=== PATIENT | female | born 1955 | race Caucasian/White ===

== ENCOUNTER 2021-02-13 10:21 | Observation (INO) | payer OTHER, SELFPAY ==
[2021-02-13] VITALS (13 sets, daily range): BP systolic 104–145; BP diastolic 58–115; PULSE 65–86; RESP 14–22; TEMP 36–36.4; O2SAT 96–100; BMI 32.3
--- NOTE | ~2021-02-13 | CT_ITS ---
EXAMINATION: CT brain wo con DATE: 02/13/2021 11:29 INDICATION: Dizziness. Syncope. TECHNIQUE: Computed tomography (CT) of the head was performed without intravenous contrast. The mA wa s adjusted according to patient size. Iterative reconstruction technique was employed. The dose-lengt h product was 605.33 mGy-cm. COMPARISON: None FINDINGS: There is no intracranial hemorrhage, acute infarction, or abnormal intracranial mass lesion . The ventricles are normal in size. There is mild mucosal thickening in the ethmoid sinuses. The mas toid air cells are normal. IMPRESSION: 1. Normal brain. Reviewed, dictated and finalized at location A. IMPRESSION: 1. Normal brain.
--- NOTE | ~2021-02-13 | US_ITS ---
EXAMINATION: US carotid duplex BI DATE: 02/14/2021 14:27 INDICATION: Syncope TECHNIQUE: Grayscale, color Doppler, and pulsed Doppler images of the cervical carotid arteries were obtained. The degree of vessel stenosis is placed in one of the following categories: normal, <50%, 5 0-69%, >=70% but less than near-occlusion, near-occlusion, or total occlusion. Note that percent sten osis relative to normal distal artery lumen diameter is indirectly measured from velocity measurement s as described by José Miguel, et al. Radiology 2003; 229:340-346. COMPARISON: None. FINDINGS: RIGHT: The right common carotid artery (CCA) peak systolic velocity (PSV) is 94 cm/s. The right internal car otid artery (ICA) PSV is 114 cm/s. The right ICA end-diastolic velocity (EDV) is 20 cm/s. The right I CA/CCA PSV ratio is 1.2. Grayscale and color Doppler images yield an estimate of <50% diameter reduct ion from plaque in the ICA. The external carotid artery (ECA) PSV is 87 cm/s. There is antegrade flow in the right vertebral artery. LEFT: The left CCA PSV is 132 cm/s. The left ICA PSV is 126 cm/s. The left ICA EDV is 31 cm/s. The left ICA /CCA PSV ratio is 1.0. Grayscale and color Doppler images including secondary Doppler criteria yield an estimate of <50% diameter reduction from plaque in the ICA. The ECA PSV is 114 cm/s. There is ante grade flow in the left vertebral artery. IMPRESSION: 1. <50% stenosis in the right internal carotid artery. 2. <50% stenosis in the left internal carotid artery. Reviewed, dictated and finalized at location A.
--- NOTE | 2021-02-13 10:35 | ECG_ITS ---
Measurements Intervals [place] Rate: 77 P: 53 NE: 135 QRS: 75 QRSD: 81 T: 34 QT: 384 QTc: 437 Interpretive Statements SINUS RHYTHM BASELINE ARTIFACT- I, II, III, AVR, AVL, V2 NORMAL ECG Electronically Signed On 02-13-2021 14:28:34 CDT by Jeovany Arreola D.O.
[2021-02-13 10:53] LABS: Basophils Percent Auto 0.2 % (0.2-1.2); Eosinophils Percent Auto 0.2 % (0-4.4); Hematocrit 43.2 % (37.0-47.0); Hemoglobin 14.8 g/dL (12.0-15.0); Immature Granulocyte Absolute 0.02 K/mm3 (0.00-0.031); Immature Granulocyte Percent A 0.2 % (0-0.5); Lymphocytes Absolute Auto 2.19 K/mm3 (0.9-3.2); Lymphocytes Percent Auto 26.5 % (18.3-44.2); Mean Corpuscular HGB Conc 34.3 g/dl (32-36); Mean Corpuscular Hemoglobin 29.9 pg (26-34); Mean Corpuscular Volume 87.3 fl (80-100); Monocytes Absolute Auto 0.4 K/mm3 (0.1-0.6); Monocytes Percent Auto 4.5 % (2.6-8.5); Neutrophils Absolute Auto 5.6 K/mm3 (1.3-6.7); Neutrophils Percent Auto 68.4 % (45.5-73.1); Platelet Count Result 224 k/mm3 (150-375); Red Blood Count 4.95 M/mm3 (4.2-5.4); Red Cell Distribution Width 13.2 % (11.5-14.5); White Blood Count 8.3 K/mm3 (4.5-10.0)
--- NOTE | 2021-02-13 11:02 | ED.DIZZY ---
HPI - Dizziness General Chief Complaint: Syncope Stated Complaint: passed out Time Seen by Provider: 02/13/21 10:40 Source: patient, family and RN notes reviewed Mode of arrival: ambulatory Limitations: no limitations History of Present Illness HPI Narrative: Patient is 66 years old white female came to the emergency room with her complaining of dizziness started 3 days ago. Patient was seen by her family physician and was diagnosed of vertigo. Patient reported having similar symptoms 1 month ago lasted for about 2 hours then resolved, was prescribed lisinopril for possible hypertension while having vertigo to be taken as needed. Patient reported having syncope twice yesterday the first 1 while sitting at the side of the bed found herself on the floor, and was unresponsive for few seconds the second 1 was patient came from the bathroom to the recliner and was unresponsive while sitting on the recliner and patient does not recall what happened at that time. Last but reported that she was unresponsive for few seconds. She reported that the dizziness get worse with any movement like walking turning, or laying down. The dizziness get better if she stopped moving. The dizziness associated with nausea and vomiting and panic attack. Patient denies any fever, chills, palpitation, headache, respiratory symptoms or chest pain Related Data Allergies Allergy/AdvReac Type Severity Reaction Status Date / Time doxycycline Allergy Unknown Nausea Verified 02/13/21 10:27 Penicillins Allergy Unknown Unknown Verified 02/13/21 10:27 Sulfa (Sulfonamide Allergy Unknown Unknown Verified 02/13/21 10:27 Antibiotics) Review of Systems Review of Systems: Narrative: CONSTITUTIONAL: Denies fever, chills, or sweats. EYES: Denies visual changes, redness, or discharge. ENT: Denies rhinorrhea, congestion, sore throat, or otalgia. CARDIOVASCULAR: Denies chest pain, palpitations, or edema. RESPIRATORY: Denies cough or dyspnea. GASTROINTESTINAL: Denies abdominal pain, nausea, vomiting, or diarrhea. GENITOURINARY: Denies dysuria or hematuria. SKIN: Denies rash or itching. MUSCULOSKELETAL: Denies back pain, joint pain, or myalgia. NEUROLOGIC: Denies headache, numbness, or weakness. PSYCHIATRIC: Denies anxiety or depression. [facility] Surgical History Surgical History History of cholecystectomy (~1994) Hx of tonsillectomy Family History Family History Mother Family history of chronic obstructive pulmonary disease Social History Social History Alcohol intake: current Gender identity (if verbalized by the patient): Female Exam Narrative: Exam Narrative: General appearance: Well-developed, well-nourished, at the bedside Skin: Normal color Head: Normocephalic, nontraumatic Eyes: Clear conjunctiva ENT: Oropharynx normal, ears normal, nose normal Neck: Supple, nontender Chest and respiratory: Airway patent, no respiratory distress, no accessory muscle use Heart: Regular rate/rhythm Abdomen: Soft, nontender, no organomegaly, quiet bowel sounds Vascular: Normal peripheral pulses, normal capillary refill. 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
[2021-02-13 11:03] LABS: Anion Gap 7 mmol/L (8-16); Blood Urea Nitrogen 24 mg/dL (7-17); Calcium 9.4 mg/dL (8.4-10.2); Carbon Dioxide 29 mmol/L (22-30); Chloride 100 mmol/L (98-107); Estimated CRCL calculation 58 ml/min; Estimated Glomerular Filt Rate 56; Glucose 143 mg/dL (65-105); Sodium 136 mmol/L (137-145)
--- NOTE | 2021-02-13 11:07 | PC.NURSE ---
Was started on meclizine by PCP, took two 12.5mg doses, concerned it wasn't helping as she started vomiting. Vertigo worsens when lies flat on back and when turning to the right , states she changes positions slowly
[2021-02-13] MEDS: diazePAM INJ (*CRX) 10 MG/2 ML SYRINGE 5 MG IV PUSH (11:09)
[2021-02-13] MEDS: ONDANSETRON INJ 4 MG/2 ML VIAL IV PUSH (11:09)
[2021-02-13] MEDS: MECLIZINE HCL 25 MG TABLET PO (11:09)
[2021-02-13 11:25] LABS: Alanine Aminotransferase 16 U/L (4-35); Albumin Level 4.7 g/dL (3.5-5.1); Alkaline Phosphatase 72 U/L (38-126); Aspartate Amino Transferase 29 U/L (14-36); Bilirubin,Total 0.5 mg/dL (0.2-1.3)
--- NOTE | 2021-02-13 11:30 | PC.NURSE ---
Pt returned from CT via cart, reports multiple syncopal episodes at home yesterday, per slid into the recliner and states the knee took more of the fall than the head , pt reports R knee pain (no deformities or bruising), denies headache or vision changes
--- NOTE | 2021-02-13 15:15 | PM.IMHP ---
H&P: HPI History of Present Illness Date/Time: 02/13/21 15:15 Chief Complaint: Dizziness and loss of consciousness. Narrative: This is a 66-year-old female recently diagnosed with hypertension who presented to the emergency department earlier today via private vehicle from home for evaluation of dizziness and loss of consciousness. She developed sudden onset vertigo when she awoke and tried to get out of bed on Tuesday morning, worse when lying supine and turning her head to the right. Initially she thought her symptoms were due to high blood pressure as she was recently diagnosed with such and reportedly her blood pressure was 145/94 on her home cuff. She decided to take the lisinopril which she was prescribed however had not yet started as she was trying lifestyle modifications first. She got up cautiously and was able to work the entire day without much issue. Her symptoms returned that night while in bed and seemed to be a lot worse on when she developed nausea, vomiting, and eventually dry heaves. Early this morning she got up to use the restroom and she sat on the side of the bed for moment to catch her bearings as she was quite dizzy due to the vertigo, and the next thing she knew she was waking up on her side on the floor. It is my understanding that she was able to get herself up and go to the bathroom however she then went to get in her recliner and according to the she once again lost consciousness for a minute or so. He was on the phone with 911 when she came to, and she told him that she was doing okay and did need an ambulance. Unfortunately she continues to have pretty significant vertigo and came in for evaluation today. She feels much better after receiving Valium and Antivert in the emergency department and was able to eat lunch and dinner without issue. She denies injury with either of a syncopal episodes. Again she did not really have a prodrome so to speak prior to these episodes however admits that she was anxious, hyperventilating, and crying prior to each of these episodes. She has not had chest pain, palpitations, or shortness of breath. No history of cardiac dysrhythmia or syncope. No new tinnitus or hearing loss. She has not had a headache. No visual changes. She denies focal weakness and paresthesias. Review of Systems Review of Systems: Narrative: Twelve systems were reviewed with pertinent positives and negatives as per HPI. She has occasional mild ringing in her ears but nothing significant has not changed. No sinus congestion, rhinorrhea, otalgia, or odynophagia. She denies fever, chills, and sweats but does note that she was ?clammy? around the time of her syncopal episode early this morning. She denies chest pain, pleuritic pain, shortness of breath. No orthopnea, PND, or lower extremity edema. She denies dysphagia and dysarthria. No diarrhea or constipation. No dysuria. Except as documented, all other systems were reviewed and are negative. [facility] Past Medical History Medical History (Updated 02/13/21 @ 21:41 by Disha Brandon PA-C) Diverticulitis Hypertension Shingles Surgical History Surgical History (Updated 02/13/21 @ 21:39 by Disha Brandon PA-C) History of cholecystectomy (~1994) History of tonsillectomy Family History Family History (Updated 02/13/21 @ 21:39 by Disha Brandon PA-C) Mother Diabetes mellitus Chronic obstructive pulmonary disease Coronary artery disease Father Hypertension Lymphoma Social History Social History (Updated 02/13/21 @ 21:40 by Disha Brandon PA-C) Social History: Surrogate decision maker: Bryant Josh, . Code status: Full code. Smoking status: Never smoker Alcohol intake: never Substance use: never Substance use type: does not use Additional living arrangements comments: The patient lives with her in [place]. Additional occupation/education comments: Works for [employer]
--- NOTE | 2021-02-13 15:19 | ADMGEN ---
This patient, Shaista Moreno, was admitted to IMU Room 232-01. Patient/family oriented to hospital policies and general routines including ID bracelet, bed and alarms, visiting hours, pain management, procedures, bathroom and other care routines, personal items, smoking policy, room service/diet, and visiting hours. Information on how to activate the Rapid Response Team has been discussed. Patient/Family are encouraged to report perceived risks to care and to ask questions if they do not understand what they are told or what they should do.
[2021-02-13 23:08] LABS: Magnesium 2.1 mg/dL (1.6-2.3)
[2021-02-14] VITALS (13 sets, daily range): BP systolic 110–142; BP diastolic 49–85; PULSE 66–94; RESP 14–20; TEMP 36.1–36.6; O2SAT 97–100
[2021-02-14 05:30] LABS: Anion Gap 4 mmol/L (8-16); Blood Urea Nitrogen 21 mg/dL (7-17); Calcium 9.2 mg/dL (8.4-10.2); Carbon Dioxide 33 mmol/L (22-30); Chloride 101 mmol/L (98-107); Estimated CRCL calculation 73 ml/min; Estimated Glomerular Filt Rate > 60; Glucose 103 mg/dL (65-105); Potassium 4.3 mmol/L (3.4-5.0); Sodium 138 mmol/L (137-145)
[2021-02-14] MEDS: lisinopriL 10 MG TABLET PO (08:10)
[2021-02-14] MEDS: hydroCHLOROthiazide 12.5 MG CAPSULE PO (08:10)
--- NOTE | 2021-02-14 16:11 | PM.DS ---
DS: Admitting Diagnosis Admitting Diagnosis Admitting Diagnosis: Chief Complaint: Dizziness and loss of consciousness. DS: Discharge Diagnosis Discharge Diagnosis (1) Syncope: Qualifiers: Syncope type: unspecified Qualified Code(s): R55 - Syncope and collapse Code(s): R55 - Syncope and collapse Status: Acute (2) Benign paroxysmal positional vertigo: Code(s): H81.10 - Benign paroxysmal vertigo, unspecified ear Status: Acute (3) Hypertension: Code(s): I10 - Essential (primary) hypertension Status: Acute DS: Summary Hospital Course Reason for hospitalization: Chief Complaint: Dizziness and loss of consciousness. Narrative: This is a 66-year-old female recently diagnosed with hypertension who presented to the emergency department earlier today via private vehicle from home for evaluation of dizziness and loss of consciousness. She developed sudden onset vertigo when she awoke and tried to get out of bed on Tuesday morning, worse when lying supine and turning her head to the right. Initially she thought her symptoms were due to high blood pressure as she was recently diagnosed with such and reportedly her blood pressure was 145/94 on her home cuff. She decided to take the lisinopril which she was prescribed however had not yet started as she was trying lifestyle modifications first. She got up cautiously and was able to work the entire day without much issue. Her symptoms returned that night while in bed and seemed to be a lot worse on when she developed nausea, vomiting, and eventually dry heaves. Early this morning she got up to use the restroom and she sat on the side of the bed for moment to catch her bearings as she was quite dizzy due to the vertigo, and the next thing she knew she was waking up on her side on the floor. It is my understanding that she was able to get herself up and go to the bathroom however she then went to get in her recliner and according to the she once again lost consciousness for a minute or so. He was on the phone with 911 when she came to, and she told him that she was doing okay and did need an ambulance. Unfortunately she continues to have pretty significant vertigo and came in for evaluation today. She feels much better after receiving Valium and Antivert in the emergency department and was able to eat lunch and dinner without issue. She denies injury with either of a syncopal episodes. Again she did not really have a prodrome so to speak prior to these episodes however admits that she was anxious, hyperventilating, and crying prior to each of these episodes. She has not had chest pain, palpitations, or shortness of breath. No history of cardiac dysrhythmia or syncope. No new tinnitus or hearing loss. She has not had a headache. No visual changes. She denies focal weakness and paresthesias. Hospital Course: Chief Complaint: Dizziness and loss of consciousness. Narrative: This is a 66-year-old female recently diagnosed with hypertension who presented to the emergency department earlier today via private vehicle from home for evaluation of dizziness and loss of consciousness. She developed sudden onset vertigo when she awoke and tried to get out of bed on Tuesday morning, worse when lying supine and turning her head to the right. Initially she thought her symptoms were due to high blood pressure as she was recently diagnosed with such and reportedly her blood pressure was 145/94 on her home cuff. She decided to take the lisinopril which she was prescribed however had not yet started as she was trying lifestyle modifications first. She got up cautiously and was able to work the entire day without much issue. Her symptoms returned that night while in bed and seemed to be a lot worse on when she developed nausea, vomiting, and eventually dry heaves. Early this morning she got up to use the restroom and she sat on the side of the bed for moment to ca
--- NOTE | 2021-02-14 21:50 | ECHO_ITS ---
Patient Info Name: Shaista Moreno Age: 66 years : 1955 Gender: Female Ht: 67 in Wt: 206 lbs BSA: 2.13 m2 HR: 74 bpm BP: 110 / 57 mmHg Heart Rhythm: Sinus Rhythm Technical Quality: Good Exam Date: 02/14/2021 9:08 AM Exam Location: [facility] Exam Room: 232 Patient Status: Inpatient Admit Date: 02/13/2021 Staff Ordering Physician: Disha Brandon PA-C Manager Maintenance: Mulu Porter RDCS Attending Provider: Eamon Olmedo MD Referring Physician: Aleksandr LANDEROS; Exam Type: CA echo doppler color flow Study Info Indications - syncope htn Complete two-dimensional, color flow and Doppler transthoracic echocardiogram is performed. Summary 1. Complete two-dimensional, color flow and Doppler transthoracic echocardiogram is performed. 2. Trivial tricuspid and pulnomic valve regurgitation. 3. Otherwise normal exam. Left Ventricle Left ventricular chamber dimension is normal. Left ventricular systolic function is normal, estimated at 65-70%. The left ventricular diastolic function is normal. Right Ventricle Right ventricular chamber dimension is normal. Left Atria Left atrial chamber dimension is normal. Right Atria Right atrial chamber dimension is normal. Aortic Valve The aortic valve is normal. Pulmonic Valve The pulmonic valve is normal. There is trace pulmonic regurgitation. Mitral Valve The mitral valve has normal leaflets. Tricuspid Valve The tricuspid valve leaflets are normal. There is trace tricuspid valve regurgitation. Pericardium/Pleural The pericardium appears normal. Aorta The aortic root size at the sinus of Valsalva is normal. Left Ventricular Outflow Tract Name Value Normal LVOT 2D LVOT Diameter 2.0 cm LVOT Doppler LVOT Peak Gradient 4 mmHg LVOT Mean Gradient 2 mmHg LVOT VTI 22 cm LVOT VTI/AV VTI Ratio 0.8 LVOT Stroke Volume 68 ml LVOT CO 13.4 l/min LVOT CI 6.3 l/min/m2 Pulmonic Valve Name Value Normal RVOT Doppler RVOT Peak Gradient 2 mmHg PV Doppler PV Peak Gradient 6 mmHg Mitral Valve Name Value Normal MV Doppler MV Decel Peñuelas 363 cm/s2 MV PHT 58 ms MV Area (PHT) 3.8 cm2 4.0-5.0 M
== END 2021-02-14 17:13 | disposition home or self-care (01) ==
LOC: ANHED 13:45 → ANHIMU 02-14 16:11
PROVIDERS: Physician Assistant; Admitting Provider Internal Medicine; Emergency Provider Emergency Medicine; PCP Family Medicine; Visit Provider Family Medicine
DX: R55 Syncope and collapse (principal); H81.10 Benign paroxysmal vertigo, unspecified ear; I10 Essential (primary) hypertension
CPT/HCPCS: 36415; 70450; 80048; 80076; 83735; 85025; 93005; 93306; 93880; 96374; 96375; 97161; 97165; 99285; A9270; G0378; J2405; J3360

== ENCOUNTER 2021-03-19 15:30 | Outpatient (RCR) | payer OTHER, SELFPAY ==
--- NOTE | 2021-03-03 15:14 | PTOPEVAL ---
PHYSICAL THERAPY EVALUATION AND PLAN OF CARE 03-03-21 Thank you for referring Shaista Moreno to [facility].? She is scheduled to be seen for therapy? 0-2 x/week for 4 weeks. Please review, sign, date and return this plan of care QUENTIN. I agree with and certify that the following plan of care is medically necessary. Referring Physician Date Attending Provider: Clementina Solorio PA-C PT Outpatient Evaluation Document 03/03/21 14:00 FRANKO (Rec: 03/03/21 15:13 FRANKO [id number]) Source of Past Medical History Patient Neurological History Hx Migraine Yes: history of--stop drinking diet soda and resolved Cardiovascular History Hx Hypertension Yes: new dx:meds; at home 110/60 Respiratory History Hx Respiratory Disorders No Significant History Gastrointestinal History Hx Gastroesophageal Reflux Disease Yes Genitourinary History Hx Genitourinary Disorders No Significant History Musculoskeletal History Hx Other Musculoskeletal Disorders Yes: neck pain; hip and knee pain Hematological History Hx Hematological Disorders No Significant History Endocrine History Hx Endocrine Disorders No Significant History HEENT History Hx HEENT Disorders No Significant History Integumentary History Hx Skin Disorders No Significant History Reproductive History Hx Reproductive Disorders No Significant History Psychosocial History Hx Psychiatric Disorders No Significant History Other History Hx Other Medical Conditions Yes: have had COVID vaccine Evaluation Information Problem Diagnosis BPPV Onset 02-13-21 Subjective Information hospitalized due to dizziness Query Text:As Reported By Patient/ Family Prior Level of Function Activity Level (Last 3 Months) 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
--- NOTE | 2021-03-10 11:03 | PCPTNOTE ---
pt called and canceled today's appt;
--- NOTE | 2021-03-26 14:06 | PCPTNOTE ---
Patient called & cancelled scheduled appointment this date, stating she is feeling much better, and feels can manage without therapy at this time.
--- NOTE | 2021-04-08 15:06 | PCPTNOTE ---
PHYSICAL THERAPY DISCHARGE 04-08-21 Attending Provider: Clementina Solorio PA-C Patient:Shaista Moreno Date of :1955 Mrs. Jackson has not returned for any further treatments since the PT evaluation on 03/19/2021, for the diagnosis of BPPV. She called and stated she was better and canceled therapy, therefore she will be discharged at this time. Thank you for referring Beth to [facility]. Please review, sign, date and return this discharge summary QUENTIN. I have been updated about the patient's current status and I agree with discharge from the above service at this time. Referring Physician Date
== END 2021-04-10 08:17 | disposition home or self-care (01) ==
LOC: ANHPT 15:30
PROVIDERS: PCP Family Medicine; Visit Provider Physician Assistant
DX: H81.10 Benign paroxysmal vertigo, unspecified ear (principal)
CPT/HCPCS: 97110; 97161

== ENCOUNTER → 2021-09-09 17:52 | Outpatient (CLI) | payer OTHER, SELFPAY ==
--- NOTE | ~2021-09-09 | DEXA_ITS ---
Bone Density Report Name: KALEE CRUZ Age: 66 Sex: Female Ethnicity: White Date of : 1955 Indication: postmenopausal; screening for osteoporosis; Referring Provider: SALINA PERES Study: Bone densitometry was performed. Exam Date: September 09, 2021 Accession number: [id number] Bone Density: Region BMD T-score Z-score Classification AP Spine (L1-L4) 1.305 2.3 4.1 Normal Femoral Neck (Left) 1.052 1.8 3.3 Normal Total Hip (Left) 1.087 1.2 2.4 Normal Femoral Neck (Right) 0.851 0.0 1.5 Normal Total Hip (Right) 1.004 0.5 1.7 Normal Total Hip Mean 1.046 0.9 2.1 Normal World Health Organization criteria for BMD impression classify patients as: Normal (T-score at or above -1.0), Osteopenia (T-score between -1.0 and -2.5), or Osteoporosis (T-score at or below -2.5). 10-year Fracture Risk: FRAX not reported because: All T-scores for Spine Total, Hip Total, Femoral Neck at or above -1.0 Clinical Information Provided by Patient: Patient maximum height was 65.0 Menopause Age: 50 No regular weight bearing exercise Does not regularly consume dairy products Drinks caffeinated beverages Onset of menses at age 14 Number of children 2 Impression: The patient has normal bone mass. Discussion: BONE DENSITY IS ABOVE THE MINIMUM DESIRABLE LEVEL AT ALL SKELETAL SITES TESTED. This patient?s bone mineral density is above the minimum desirable level (T-score -1.0 or better) at all sites measured. The patient should follow a healthful lifestyle (good nutrition with adequate calcium and vitamin D, and appropriate weight-bearing exercise). Follow-Up: Consider repeating this study in 5 years or sooner if there is some new clinical indication. Reported by: ALMA on 09/09/2021 6:45:00 PM. Reviewed, dictated and finalized at location [facility]
== END ==
PROVIDERS: PCP Family Medicine; Visit Provider Family Medicine
DX: M81.0 Age-related osteoporosis without current pathological fracture (principal)
CPT/HCPCS: 77080

== ENCOUNTER → 2021-10-28 15:15 | Outpatient (CLI) | payer OTHER, SELFPAY ==
--- NOTE | ~2021-10-28 | MM_ITS ---
EXAMINATION: MM screening [facility] BI w katherine HISTORY: Screening TECHNIQUE: Craniocaudal and mediolateral oblique 3-D tomosynthesis images were obtained and synthetic 2-D images were generated. CAD analysis was submitted and interpreted. COMPARISON: Comparison to multiple prior studies sequentially, with oldest reviewed study dated 06/2013. BREAST PARENCHYMAL COMPOSITION: Breast composed of scattered areas of fibroglandular density. FINDINGS: There is no evidence of suspicious mass, calcification, or architectural distortion to sugg est malignancy in either breast. There has been no suspicious interval change. IMPRESSION: 1. No mammographic evidence of malignancy. 2. Recommend routine screening mammography in one year. BI-RADS Category 1: Negative Reviewed, dictated and finalized at location A. DER DRIVER
== END ==
PROVIDERS: PCP Family Medicine; Visit Provider Family Medicine
DX: Z12.31 Encounter for screening mammogram for malignant neoplasm of breast (principal)
CPT/HCPCS: 77063; 77067

== ENCOUNTER 2021-12-31 13:26 | Outpatient (CLI) | payer OTHER, SELFPAY | END 2021-12-31 13:27 | disposition home or self-care (01) | LOC: ANHAUDIO 13:28 | PROVIDERS: PCP Family Medicine; Visit Provider Family Medicine | DX: H91.90 Unspecified hearing loss, unspecified ear (principal) | CPT/HCPCS: 92557; 92567 ==

== ENCOUNTER 2022-06-12 15:10 | Emergency (ER) | payer MEDICARE, SELFPAY ==
--- NOTE | ~2022-06-12 | XR_ITS ---
EXAM: XR foot LT min 3V DATE: 06/12/2022 15:34 HISTORY: trauma today rolled foot/lateral metatarsal area pain . COMPARISON: 02/15/2019. FINDINGS: Normal mineralization. No fracture or dislocation. No lytic or blastic lesion. Scattered d egenerative changes. Plantar enthesopathy. No erosion or periosteal change. Soft tissues within edda l limits. IMPRESSION: No acute osseous finding in the left foot. Reviewed, dictated and finalized at location K.
[2022-06-12 15:23] VITALS: BP 127/65; PULSE 75; RESP 18; TEMP 36.5; O2SAT 97
--- NOTE | 2022-06-12 15:34 | ED.GENADULT ---
HPI - General Adult General Chief complaint: Extremity Injury, Lower Stated complaint: Lt Foot Pain due to Fall History of Present Illness HPI narrative: Patient is a 67-year-old female who presents to the the medical center via POV accompanied by her spouse for an evaluation of a left foot injury that occurred today. She reports pain and swelling. She accidentally fell while mis-stepping on a sidewalk. She reports her pain is constant. Unable to describe quality of pain. Rates pain 7 out of 10 on a pain scale. Pain is better at rest and worse with weightbearing. Related Data Allergies Allergy/AdvReac Type Severity Reaction Status Date / Time doxycycline Allergy Mild Nausea Verified 06/12/22 15:28 Penicillins Allergy Mild Hives Verified 06/12/22 15:28 Sulfa (Sulfonamide Allergy Mild Hives Verified 06/12/22 15:28 Antibiotics) Review of Systems Review of Systems: Pertinent negatives: fever, chills, sweats, change in appetite, poor p.o. intake, malaise, calf tenderness, skin color changes, rash, warmth, numbness, tingling, loss of sensation, deformity, decreased range of motion, weakness, difficulty with ambulation/coordination, nausea, vomiting, lymphadenopathy, shortness of breath, chest pain, heart palpitations, and heart murmur. [facility] Past Medical History Medical History Diverticulitis Hypertension Shingles Surgical History Surgical History History of cholecystectomy (~1994) History of tonsillectomy Family History Family History Mother Diabetes mellitus Chronic obstructive pulmonary disease Coronary artery disease Father Hypertension Lymphoma Social History Social History Social History: Surrogate decision maker: Bryant Moreno, . Code status: Full code. Smoking status: Never smoker Alcohol intake: never Substance use: never Substance use type: does not use Additional living arrangements comments: The patient lives with her in [place]. Additional occupation/education comments: Works for [employer]. Gender identity (if verbalized by the patient): Female Spiritual care concerns: No Comments I have reviewed and agree with the patient's past medical, surgical, social, and family hx as documented by the RN. There is no relevant family history pertinent to the presenting complaint. Exam Narrative: GENERAL: Well-appearing, well-nourished, and in no acute distress. HEAD: Normocephalic, atraumatic. NECK: Supple. No Lymphadenopathy or nuchal rigidity appreciated. CHEST: Bilateral lung jain are clear to auscultation. No respiratory distress. No evidence of cough or pleuritic cp upon examination. HEART: Regular rate and rhythm. No murmur, gallop, or rub heard. EXTREMITIES: Moderate generalized pain elicited to lateral aspect of the left foot with all active/passive ROM. No evidence of point tenderness. No evidence of injury, decreased ROM, swelling, cyanosis, hematoma, laceration, abrasion, deformity, rash, or puncture. No evidence of dislocation, ligament laxity, effusion, or pain at rest. Pulses palpable at 2+, strength 5/5, and cap refill < 3 seconds in affected extremity. DTRs normal. Unable to assess gait. Patient in wheelchair. SKIN: Warm, dry, no rash. NEURO: No focal deficits. Alert and oriented x3. Course Course Level of Care: Express Care Visit Vital Signs Vital signs: Vital Signs Temperature 97.7 F 06/12/22 15:23 Pulse Rate 75 06/12/22 15:23 Respiratory Rate 18 06/12/22 15:23 Blood Pressure 127/65 06/12/22 15:23 Pulse Oximetry 97 06/12/22 15:23 Oxygen Delivery Room Air 06/12/22 15:23 Temperature 97.7 F 06/12/22 15:23 Pulse Rate 75 06/12/22 15:23 Respiratory Rate 18 06/12/22
== END 2022-06-12 16:00 | disposition home or self-care (01) ==
PROVIDERS: Emergency Provider Nurse Practitioner Family; PCP Family Medicine
DX: S93.602A Unspecified sprain of left foot, initial encounter (principal); W01.0XXA Fall on same level from slipping, tripping and stumbling without subsequent striking against object, initial encounter; I10 Essential (primary) hypertension
CPT/HCPCS: 73630; 99213; G0463

== ENCOUNTER 2022-11-15 12:28 | Outpatient (CLI) | payer MEDICARE, SELFPAY ==
--- NOTE | 2022-11-15 12:41 | ECHO_ITS ---
Patient Info Name: Shaista Moreno Age: 67 years : 1955 Gender: Female Ht: 65 in Wt: 200 lbs BSA: 2.07 m2 HR: 73 bpm BP: 172 / 93 mmHg Heart Rhythm: Sinus Rhythm Technical Quality: Good Exam Date: 11/15/2022 12:59 PM Exam Location: [facility] Patient Status: Outpatient Admit Date: 11/15/2022 Staff Ordering Physician: Maulik Saeed MD Manager Fitness: Kalani Mckay RDCS Attending Provider: Maulik Saeed MD Referring Physician: Darlin LINO; Exam Type: CA echo doppler color flow Study Info Indications R01.1 - Cardiac murmur, unspecified Complete two-dimensional, color flow and Doppler transthoracic echocardiogram is performed. Summary 1. Complete two-dimensional, color flow and Doppler transthoracic echocardiogram is performed. 2. Small amounts of tricuspid and pulmonic valve regurgitation. 3. Otherwise unremarkable echo cardio. Left Ventricle Left ventricular chamber dimension is normal. Left ventricular systolic function is normal, estimated at 60-65%. The left ventricular diastolic function is normal. Right Ventricle Right ventricular chamber dimension is normal. Left Atria Left atrial chamber dimension is normal. Right Atria Right atrial chamber dimension is normal. Aortic Valve The aortic valve is normal. Pulmonic Valve The pulmonic valve is normal. There is mild pulmonic regurgitation. Mitral Valve The mitral valve has normal leaflets. Tricuspid Valve The tricuspid valve leaflets are normal. There is mild tricuspid valve regurgitation. Pericardium/Pleural The pericardium appears normal. Aorta The aortic root size at the sinus of Valsalva is normal. Left Ventricular Outflow Tract Name Value Normal LVOT 2D LVOT Diameter 2.0 cm LVOT Doppler LVOT Peak Gradient 5 mmHg LVOT Mean Gradient 3 mmHg LVOT VTI 26 cm LVOT VTI/AV VTI Ratio 0.9 LVOT Stroke Volume 81 ml LVOT CO 5.3 l/min LVOT CI 2.6 l/min/m2 Pulmonic Valve Name Value Normal RVOT Doppler RVOT Peak Gradient 3 mmHg PV Doppler PV Peak Gradient 7 mmHg Mitral Valve Name Value Normal MV Doppler MV Decel [place] 329 cm/s2 MV PHT 69 ms MV Area (PHT) 3.2 cm2
== END 2022-11-15 12:29 | disposition home or self-care (01) ==
PROVIDERS: PCP Family Medicine; Visit Provider Family Medicine
DX: R01.1 Cardiac murmur, unspecified (principal)
CPT/HCPCS: 93306

== ENCOUNTER 2022-12-24 01:54 | Day surgery (SDC) | payer MEDICARE, SELFPAY ==
[2022-12-10 10:41] VITALS: BMI 37.4
[2022-12-24 09:03] VITALS: BP 149/84; PULSE 75; RESP 17; TEMP 36.3; O2SAT 98
--- NOTE | 2022-12-24 09:11 | WPDANESEPPF ---
Anes - Initial Pre Proc Eval Procedure: Operation Date: 12/24/22 10:30 Proposed Procedures p Esophagogastroduodenoscopy & Screening Colonoscopy - Demetrius Vivar MD Date/Time: 12/24/22 09:11 Surgeon: Deemtrius Vivar MD Pre Op Diagnosis: neoplasm screening, gastritis Patient Data Age: 67 Gender: F Height: 1.65 m Weight: 102 kg Allergies Allergy/AdvReac Type Severity Reaction Status Date / Time Sulfa (Sulfonamide Allergy Severe Nausea and Verified 12/24/22 09:16 Antibiotics) Vomiting doxycycline Allergy Mild Nausea Verified 12/24/22 09:16 Penicillins Allergy Mild Hives Verified 12/24/22 09:16 Home Medications Medication Instructions Recorded Confirmed Type bupropion HCl 300 mg 24 hr tablet, 300 mg PO QAM #90 tabs 10/12/22 12/10/22 Rx extended release (Wellbutrin XL) esomeprazole magnesium 40 mg 40 mg PO DAILY #90 caps 11/01/22 12/10/22 Rx capsule,delayed release (Nexium) dicyclomine 10 mg capsule 10 mg PO QID PRN stomach cramps 11/17/22 12/10/22 Rx #60 caps alprazolam 0.25 mg tablet 0.25 mg PO TID PRN Anxiety 11/29/22 12/10/22 History sodium,potassium,mag sulfates 17.5 See Rx Instructions PO .COMPLEX 12/02/22 Rx gram-3.13 gram-1.6 gram oral soln #354 mL (Suprep Bowel Prep Kit) aluminum hydrox-magnesium carb 254 10 ml PO QID PRN Gastric Reflux 12/10/22 12/10/22 History mg-237.5 mg/5 mL oral suspension (Gaviscon Extra Strength) hydrochlorothiazide 12.5 mg capsule 12.5 mg PO DAILY 12/10/22 12/10/22 History sucralfate 1 gram tablet 1 g PO ACHS PRN Gastric Reflux 12/10/22 12/10/22 History ondansetron HCl 4 mg tablet 4 mg PO Q6H PRN nausea and 12/13/22 Rx vomiting #20 tabs Patient hx anesthesia problems: none Family hx anesthesia problems: none Results Review: All pre-operative results and documents have been reviewed as part of the pre-operative evaluation. [facility] Past Medical History Medical History Diverticulitis Hypertension Shingles Surgical History Surgical History History of cholecystectomy (~1994) History of tonsillectomy Family History Family History Mother Diabetes mellitus Chronic obstructive pulmonary disease Coronary artery disease Father Hypertension Lymphoma Social History Social History Social History: Surrogate decision maker: Bryant Moreno, . Code status: Full code. Smoking status: Never smoker Alcohol intake: current Substance use: never Substance use type: does not use Lack of Transportation: No Lack of Food: Never True Current Housing: I Have Housing Concerned About Future Housing: No Difficulty Paying Gas/Electric Bills: No Difficulty Paying for Meds: No Currently Unemployed: No Education: High School Diploma/GED Difficulty w/ Childcare or Family Care: No Living arrangements: with family Additional living arrangements comments: The patient lives with her in [place]. Additional occupation/education comments: Works for [employer]. Gender identity (if verbalized by the patient): Female Spiritual care concerns: No Anes - Eval Final PreProcedure Day of Procedure 12/24/22 09:11 Patient weight: obese Heart: regular rate and rhythm Lungs: clear to auscultation and normal air movement Airway: Mallampati scale class II Neurological: alert and oriented Last oral intake: >/= 8 hours ASA classification: III Emergent: no Anesthetic plan: proceed Anesthesia type and monitoring: general GIVS Results Review: All pre-operative results and documents have been reviewed as part of the pre-operative evaluation. Informed Consent: The patient's anesthetic plan and its attendant risks and benefits were discussed with the patient/family/POA. Questions were solicited and
--- NOTE | 2022-12-24 09:37 | WPDHPUPDATE1 ---
History and Physical Update Update Date/Time: 12/24/22 09:37 History and Physical has been reviewed, including an updated exam of the patient. There are NO changes in the patient's condition. Risks, benefits, and alternatives have been discussed and questions answered. Patient agrees to proceed with procedure.
[2022-12-24] MEDS: LACTATED RINGERS 1,000 ML 150 ML IV CONT (09:41)
--- NOTE | 2022-12-24 10:19 | SUR.OPER ---
EGD procedure completed at 1010, Colonoscopy started at 1015
[2022-12-24 10:34] VITALS: BP 98/50; PULSE 83; RESP 19; O2SAT 99
[2022-12-24 10:44] VITALS: BP 98/61; PULSE 82; RESP 19; O2SAT 100
[2022-12-24 10:54] VITALS: BP 99/55; PULSE 76; RESP 17; O2SAT 100
== END 2022-12-24 11:05 | disposition home or self-care (01) ==
PROVIDERS: PCP Family Medicine; Visit Provider Internal Medicine Gastroenterology
PROC: 0DJ08ZZ Inspection of Upper Intestinal Tract, Via Natural or Artificial Opening Endoscopic (ICD-10-PCS; CPT 43235; principal; 2022-12-24 10:30)
DX: Z12.11 Encounter for screening for malignant neoplasm of colon (principal); R10.13 Epigastric pain; K31.7 Polyp of stomach and duodenum; R11.2 Nausea with vomiting, unspecified; K57.30 Diverticulosis of large intestine without perforation or abscess without bleeding; I10 Essential (primary) hypertension; K64.8 Other hemorrhoids; E66.9 Obesity, unspecified
CPT/HCPCS: 43239; G0121; 87081; 88305; J2704; J7120

== ENCOUNTER → 2023-02-02 11:58 | Outpatient (CLI) | payer MEDICARE, SELFPAY ==
--- NOTE | ~2023-02-02 | XR_ITS ---
XR knee LT min 4V DATE: 02/02/2023 12:14 INDICATION: Left knee pain TECHNIQUE: 4 views COMPARISON: None FINDINGS: Tricompartment osteoarthritis, moderately severe at the patellofemoral and medial compartme nts, mild to moderate at the lateral compartment. No fracture or dislocation. Mild suprapatellar knee joint effusion may be present. No periosteal reac tion or bone destruction. No radiopaque intra-articular loose body or chondrocalcinosis. Mild patella r enthesopathy. IMPRESSION: Tricompartment osteoarthritis, most prominent at the patellofemoral and medial compartmen ts Suspected mild knee joint effusion Reviewed, dictated and finalized at location B. IMPRESSION: Tricompartment osteoarthritis, most prominent at the patellofemoral and medial compartments Suspected mild knee joint effusion
== END ==
PROVIDERS: PCP Family Medicine; Visit Provider Nurse Practitioner
DX: M17.12 Unilateral primary osteoarthritis, left knee (principal)
CPT/HCPCS: 73564

== ENCOUNTER → 2023-02-07 13:42 | Outpatient (CLI) | payer MEDICARE, SELFPAY ==
--- NOTE | ~2023-02-07 | MR_ITS ---
EXAMINATION: MR knee LT wo con DATE: 02/07/2023 14:18 INDICATION: Left knee pain and limping post injury TECHNIQUE: Magnetic resonance imaging (MRI) of the left knee was performed without intravenous contra st. Sequences included coronal PD-weighted FSE, coronal PD-weighted FS FSE, sagittal T2-weighted FSE , sagittal PD-weighted FS FSE and axial PD weighted fat saturated FSE. COMPARISON: None. FINDINGS: Medial compartment: Full or near full-thickness radial tear near the posterior root of the medial meniscus with mild medi al extrusion of the meniscal body. Extensive partial thickness cartilage loss involving greater than 50% the cartilage thickness along the anterior to central weightbearing medial femoral condyle and at the anteromedial aspect of the medial tibial plateau, bladder with underlying mild subarticular brittany a-like signal change and likely developing cystlike change. Small marginal osteophytes are present. Lateral compartment: Complex tear of the body and posterior horn of the lateral meniscus beginning in the body as a longit udinal horizontal tear plane extending to the superior articular surface crossing the free edge at th e junction of the body and posterior horn with additional longitudinal horizontal tear plane extendin g to the intra-articular surface at the posterior horn. The posterior horn of the lateral meniscus ex tends to the take intact posterior meniscal femoral ligament of Brown. No evident extension of men iscal tissue towards the region of the posterior root suggesting an additional tear. Small central valladares bchondral osteophyte arising from the central weightbearing lateral femoral condyle at the site of de ep chondral fissuring. Additional shallow chondral surface regularity at the anterior weightbearing l ateral femoral condyle and central aspect of the lateral tibial plateau. Small to moderate size susan nal osteophytes are present. Patellofemoral compartment: Horizontal band of deep chondral ulceration with underlying mild cortical irregularity and couple sma ll foci of subarticular edema-like signal change at the central aspect of the lateral patellar facet. Less severe partial thickness chondral ulceration at the apical ridge and medial facet. Deep chondra l ulceration with additional mild cortical irregularity and minimal edema-like signal change at the i nferior aspect of the lateral trochlea. Ligaments and tendons: Anterior and posterior cruciate ligaments are normal. The fibular collateral ligament complex is norm al. Mild thickening and mild increased signal of the proximal medial collateral ligament without sign ificant surrounding edema to suggest acute injury this likely represents mild scarring related to chr onic sprain. The extensor mechanism is normal. The visualized medial and lateral hamstring tendons as well as the iliotibial band are normal. Fluid: Moderate-sized left knee joint effusion with mild synovitis at the suprapatellar pouch. Multilobulate d ganglion cysts are present at the posterior recesses at the popliteal fossa along the posterior mar gin of the metaphyseal regions of the medial and lateral femoral condyles. No loose osteochondral bod ies identified. Mild prepatellar edema without discrete bursal fluid collection. Osseous/other: Bone alignment is normal. No fracture or pathologic marrow replacing process. IMPRESSION: 1. Radial tear at the posterior horn of the medial meniscus. 2. Complex tear at the body and posterior horn of the lateral meniscus. 3. Tricompartmental osteoarthritis, moderate severity in the medial compartment and mild in the later al and patellofemoral compartments, each with regions of high-grade chondromalacia. 4. Mild scarring along the proximal medial collateral ligament likely sequela of chronic sprain. 5. Moderate-sized left knee joint effusion.
== END ==
PROVIDERS: PCP Family Medicine; Visit Provider Nurse Practitioner
DX: S83.272A Complex tear of lateral meniscus, current injury, left knee, initial encounter (principal); X58.XXXA Exposure to other specified factors, initial encounter; M17.12 Unilateral primary osteoarthritis, left knee; M25.462 Effusion, left knee
CPT/HCPCS: 73721

== ENCOUNTER 2024-05-08 14:17 | Outpatient (CLI) | payer MEDICARE, SELFPAY ==
--- NOTE | ~2024-05-08 | MM_ITS ---
EXAMINATION: MM screening marc BI w katherine HISTORY: Screening TECHNIQUE: Craniocaudal and mediolateral oblique 3-D tomosynthesis images were obtained and synthetic 2-D images were generated. CAD analysis was submitted and interpreted. COMPARISON: Comparison to multiple prior studies sequentially, with oldest reviewed study dated 06/2013. BREAST PARENCHYMAL COMPOSITION: Not dense: There are scattered areas of fibroglandular density. FINDINGS: There is no evidence of suspicious mass, calcification, or architectural distortion to sugg est malignancy in either breast. There has been no suspicious interval change. IMPRESSION: 1. No mammographic evidence of malignancy. 2. Recommend routine screening mammography in one year. BI-RADS Category 1: Negative Reviewed, dictated and finalized at location B.
== END 2024-05-08 14:18 | disposition home or self-care (01) ==
PROVIDERS: PCP Family Medicine; Visit Provider Nurse Practitioner Family
DX: Z12.31 Encounter for screening mammogram for malignant neoplasm of breast (principal)
CPT/HCPCS: 77063; 77067

== ENCOUNTER 2024-08-16 14:26 | Outpatient (CLI) | payer MEDICARE, SELFPAY ==
--- NOTE | ~2024-08-16 | XR_ITS ---
Left Knee Technique: AP, lateral, and sunrise views were obtained. Clinical History: Strain Findings: No fracture or dislocation is seen. There is mild medial compartment narrowing. There is mi ld to moderate tricompartmental degenerative spurring. Soft tissues are unremarkable. No joint effusi on is seen. Impression: Degenerative change, as above. Reviewed, dictated and finalized at location M. Impression: Degenerative change, as above.
--- NOTE | ~2024-08-16 | XR_ITS ---
Right Knee Technique: AP, lateral, and sunrise views were obtained. Clinical History: Pain Findings: No fracture or dislocation is seen. There is mild to moderate tricompartmental degenerative spurring. Soft tissues are unremarkable. No joint effusion is seen. Impression: Mild to moderate tricompartmental degenerative spurring. Reviewed, dictated and finalized at [facility]. Impression: Mild to moderate tricompartmental degenerative spurring.
== END 2024-08-16 14:27 | disposition home or self-care (01) ==
LOC: GOSHIMG 14:27
PROVIDERS: PCP Orthopaedic Surgery; Visit Provider Family Medicine
DX: S86.911A Strain of unspecified muscle(s) and tendon(s) at lower leg level, right leg, initial encounter (principal); S83.249A Other tear of medial meniscus, current injury, unspecified knee, initial encounter; X58.XXXA Exposure to other specified factors, initial encounter; M17.0 Bilateral primary osteoarthritis of knee
CPT/HCPCS: 73562

== ENCOUNTER 2024-09-20 07:17 | Outpatient (CLI) | payer MEDICARE, SELFPAY ==
--- NOTE | 2024-09-20 07:40 | ECG_ITS ---
Test Date: 2024-09-20 07:49:45 Measurements Intervals [place] Rate: 70 P: -2 SC: 114 QRS: 64 QRSD: 82 T: 27 QT: 382 QTc: 413 Interpretive Statements SINUS RHYTHM WITH SHORT SC INTERVAL No previous ECG available for comparison Electronically Signed On 09-20-2024 09:55:32 SOFTWARE CLIENT ARCHITECT by Houston Licona M.D.
== END 2024-09-20 07:18 | disposition home or self-care (01) ==
LOC: ANHCARD 07:19
PROVIDERS: PCP Family Medicine; Visit Provider Orthopaedic Surgery
DX: R01.1 Cardiac murmur, unspecified (principal)
CPT/HCPCS: 93005

== ENCOUNTER 2024-10-29 08:54 | Outpatient (CLI) | payer MEDICARE, SELFPAY ==
[2024-10-29 10:14] LABS: Basophils Percent Auto 0.2 % (0.2-1.2); Eosinophils Absolute Auto 0.1 K/mm3 (0-0.3); Eosinophils Percent Auto 1.9 % (0-4.4); Hematocrit 38.9 % (37.0-47.0); Hemoglobin 12.7 g/dL (12.0-15.0); Immature Granulocyte Absolute 0.01 K/mm3 (0.00-0.031); Immature Granulocyte Percent A 0.2 % (0-0.5); Lymphocytes Absolute Auto 1.96 K/mm3 (0.9-3.2); Lymphocytes Percent Auto 34.3 % (18.3-44.2); Mean Corpuscular HGB Conc 32.6 g/dl (32-36); Mean Corpuscular Hemoglobin 29.7 pg (26-34); Mean Corpuscular Volume 90.9 fl (80-100); Mean Platelet Volume 9.1 fl (7.4-10.4); Monocytes Absolute Auto 0.4 K/mm3 (0.1-0.6); Monocytes Percent Auto 6.3 % (2.6-8.5); Neutrophils Absolute Auto 3.3 K/mm3 (1.3-6.7); Neutrophils Percent Auto 57.1 % (45.5-73.1); Platelet Count Result 196 k/mm3 (150-375); Red Blood Count 4.28 M/mm3 (4.2-5.4); Red Cell Distribution Width 13.5 % (11.5-14.5); White Blood Count 5.7 K/mm3 (4.5-10.0)
[2024-10-29 10:22] LABS: Hemoglobin A1C 5.5 % (<5.7)
[2024-10-29 10:23] LABS: Albumin Level 4.4 g/dL (3.5-5.1)
[2024-10-29 10:27] LABS: Anion Gap 6 mmol/L (4-12); Blood Urea Nitrogen 14 mg/dL (7-17); Calcium 9.2 mg/dL (8.4-10.2); Carbon Dioxide 31 mmol/L (22-30); Chloride 100 mmol/L (98-107); Estimated Glomerular Filt Rate > 60; Glucose 90 mg/dL (65-110); Potassium 4.5 mmol/L (3.4-5.0); Sodium 137 mmol/L (137-145)
[2024-10-29 10:49] LABS: Urine Cotinine NEGATIVE
[2024-10-29 11:23] LABS: MRSA (PCR) NOT DETECTED (NOT DETECTE)
== END 2024-10-29 08:55 | disposition home or self-care (01) ==
LOC: ANHSURGERY 09:00
PROVIDERS: Anesthesiology; PCP Family Medicine; Visit Provider Orthopaedic Surgery
DX: M17.12 Unilateral primary osteoarthritis, left knee (principal); Z79.899 Other long term (current) drug therapy
CPT/HCPCS: 36415; 80048; 80307; 82040; 83036; 85025; 87641

== ENCOUNTER 2024-11-20 00:35 | Day surgery (SDC) | payer MEDICARE, SELFPAY ==
[2024-10-29 09:13] VITALS: BP 136/75; PULSE 79; RESP 16; TEMP 36.6; O2SAT 99; BMI 37.5
--- NOTE | 2024-10-29 09:37 | PC.NURSE ---
Report to the Outpatient Waiting Room, entrance under the green pavilion located off [facility], at time __0800am on date __11/20/24 . Planned Procedure Time: ____1000am____.? Time changes happen often and if your time is changed the preop area will call you the afternoon before. - You and your visitor will be asked to self-screen and do not enter if you have any COVID symptoms. Please call surgeon if you need to reschedule. - A mask is optional within the hospital at this time. Patients may have clear liquids (water, carbonated beverages, clear teas, apple juice) until 3 hours prior to surgery with a maximum of 20 ounces. - No food from midnight until time of surgery and no smoking. This includes no chewing gum, candy or mints.(0700am) Take only the following medications with a SIP of water on the morning of surgery: None- Take Alprazolam and Cyclobenzaprine as needed DO NOT STOP ANY OF YOUR OTHER PRESCRIPTION MEDICATIONS PRIOR TO SURGERY EXCEPT THE FOLLOWING Medications to discontinue per physician Hold all vitamins and supplements Date to take last dose__11/16/24 Please no make-up, nail frisian, hairspray, perfume, deodorant, or body powder the day of surgery.? No jewelry (including any body piercings) or valuables the day of surgery, leave them at home.? Please take a shower or bath the night before, or the morning of, surgery with an antibacterial soap.? Wear comfortable, loose fitting clothing.? Hibicleanse if you want to use it. . - Jewelry must be removed prior to entering the operating room.? Rings and piercings that are not removed may be cut off. - The hospital will not accept responsibility for valuables.? - Please leave all valuables, including medications, at home the day of surgery. If you are going home after surgery, a licensed flatbed driver must drive you home.? - NO public transportation without another adult if you receive anesthesia. - We recommend that an adult stay with you for 24 hours following discharge. - We also recommend that you do not drive, make important decision, drink alcoholic beverages, or take any drugs that were not prescribed by your health care provider for at least 24 hours after your discharge time. Follow any additional instructions given to you from your surgeon. Telephone instructions given to __Patient & and asked if any additional questions and then verbalized understanding. Patient advised to call surgeon office or pre surgery nurse liaison [phone] if any additional questions.
[2024-11-20] VITALS (18 sets, daily range): BP systolic 130–178; BP diastolic 70–91; PULSE 71–88; RESP 14–20; TEMP 35.6–36.4; O2SAT 92–100; BMI 36.7
--- NOTE | ~2024-11-20 | XR_ITS ---
EXAMINATION: [id number] DATE: 11/20/2024 13:01 INDICATION: Postoperative evaluation following left total knee arthroplasty. TECHNIQUE: Anteroposterior and lateral views of the left knee were obtained. COMPARISON: Left knee radiographs dated 08/16/2024 FINDINGS: Left total knee arthroplasty with patellar resurfacing appears well seated and in near anatomic align ment. No fractures identified. Expected postoperative subcutaneous and intra-articular gas. IMPRESSION: 1. Left total knee arthroplasty, negative for postoperative purposes. Reviewed, dictated and finalized at location A. [facility] ED
[2024-11-20] MEDS: LACTATED RINGERS 1,000 ML 30 ML IV CONT ×3 (08:45→13:17)
[2024-11-20] MEDS: ACETAMINOPHEN 500 MG TABLET 1000 MG PO (09:00)
[2024-11-20] MEDS: TRANEXAMIC ACID 1,000MG/ISO100 1,000 MG/100 ML BAG 200 MG IVPB (09:30)
--- NOTE | 2024-11-20 09:37 | P.PNAN_ITS ---
Anes - Initial Pre Proc Eval Procedure: Operation Date: 11/20/24 10:00 Proposed Procedures p Left Total Knee Arthroplasty - Jonathan Gonzalez MD Date/Time: 11/20/24 09:37 Surgeon: Jonathan Gonzalez MD Pre Op Diagnosis: primary oa left knee Patient Data Age: 69 Gender: F Height: 1.65 m Weight: 100.2 kg Last Vital Signs Temp 36.6 C 10/29/24 09:13 Pulse 79 10/29/24 09:13 Resp 16 10/29/24 09:13 BP 136/75 10/29/24 09:13 Pulse Ox 99 10/29/24 09:13 O2 Del Method Room Air 10/29/24 09:13 Allergies Allergy/AdvReac Type Severity Reaction Status Date / Time Sulfa (Sulfonamide Allergy Severe Nausea and Verified 11/20/24 09:05 Antibiotics) Vomiting doxycycline Allergy Mild Nausea Verified 11/20/24 09:05 Penicillins Allergy Mild Hives Verified 11/20/24 09:05 Home Medications ?Medication ?Instructions ?Recorded ?Confirmed ?Type aluminum hydrox-magnesium carb 254 10 ml PO QID PRN Gastric Reflux 02/02/23 11/12/24 History mg-237.5 mg/5 mL oral suspension (Gaviscon Extra Strength) cetirizine 10 mg capsule (Zyrtec) 10 mg PO DAILY PRN allergy symptoms 02/10/24 11/20/24 History hydrochlorothiazide 12.5 mg capsule 12.5 mg PO DAILY #90 caps 06/26/24 11/20/24 Rx alprazolam 0.25 mg tablet 0.25 mg PO TID PRN anxiety #90 tabs 08/14/24 11/20/24 Rx mecobalamin (vitamin B12) 5,000 5,000 mcg PO DAILY 08/15/24 11/20/24 History mcg disintegrating tablet sertraline 25 mg tablet 25 mg PO DAILY #90 tabs 10/02/24 11/20/24 Rx cholecalciferol (vitamin D3) 25 25 mcg PO DAILY 10/29/24 11/20/24 History mcg (1,000 unit) tablet (Vitamin D3) magnesium 250 mg tablet 250 mg PO DAILY 10/29/24 11/20/24 History cyclobenzaprine 10 mg tablet See Rx Instructions .Route 10/31/24 11/20/24 Rx .COMPLEX #60 tabs Laboratory Tests 11/20/24 08:38 Blood Type Pending Antibody Screen Pending Patient hx anesthesia problems: none Family hx anesthesia problems: none Results Review: All pre-operative results and documents have been reviewed as part of the pre- operative evaluation. [facility] Past Medical History Medical History Shingles Diverticulitis Hypertension Surgical History Surgical History History of tonsillectomy History of cholecystectomy (~1994) Family History Family History Mother Diabetes mellitus Chronic obstructive pulmonary disease Coronary artery disease Father Hypertension Lymphoma Unknown Asthma Depression Arthritis Lymphoma Social History Social History Social History: Surrogate decision maker: Bryant Moreno, . Code status: Full code. Smoking status: Never smoker Alcohol intake: current Drinks per week: 1 Alcohol use details: Few per month Substance use: never Substance use type: does not use Lack of Transportation: No Lack of Food: Never True Current Housing: I Have Housing Concerned About Future Housing: No Difficulty Paying Gas/Electric Bills: No Difficulty Paying for Meds: No Currently Unemployed: No Education: High School Diploma/GED Difficulty w/ Childcare or Family Care: No Living arrangements: with family Additional living arrangements comments: The patient lives with her in [place]. 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 Informed Consent: The patient's anesthetic plan and its attendant risks and benefits were discussed with the patient/family/POA. Questions were solicited and answers provided to the satisfaction of the patient/family/POA.
--- NOTE | 2024-11-20 09:44 | WPDHPUPDATE1 ---
History and Physical Update Update Date/Time: 11/20/24 09:44 History and Physical has been reviewed, including an updated exam of the patient. There are NO changes in the patient's condition. Risks, benefits, and alternatives have been discussed and questions answered. Patient agrees to proceed with procedure.
[2024-11-20] MEDS: ceFAZolin 2 GM/D5W 50 ML 2 GM/50 ML BAG IVPB ×2 (10:12→16:19)
[2024-11-20] MEDS: SODIUM CHLORIDE 0.9% IV 37.7 ML, MORPHINE SULFATE INJ (*CRX) 2 MG, ROPivacaine HCL 1% 2... INFILTRATE (10:45)
[2024-11-20] MEDS: GENTAMICIN BONE CEMENT REFOBACIN 1 EACH TOPICAL (10:49)
[2024-11-20] MEDS: TRANEXAMIC ACID 1,000 MG/10 ML AMPUL 1000 MG IV PUSH (12:16)
[2024-11-20] MEDS: fentaNYL CITRATE INJ (*CRX) 100 MCG/2 ML VIAL 25 MCG IV PUSH ×8 (12:45→13:12)
[2024-11-20] MEDS: HYDROmorphone HCL INJ (*CRX) 1 MG/ML SYR 0.25 MG IV PUSH ×2 (13:31→14:10)
--- NOTE | 2024-11-20 14:34 | W.PM.PROC2 ---
Procedure Note - Detailed Date of Procedure 11/20/24 Pre-op Diagnosis Left knee degenerative arthritis. Post-op Diagnosis Same Procedure Performed Calipered, kinematically aligned total knee replacement left knee. Surgeon Jonathan Gonzalez MD [employer] Samantha Nava PA-C Anesthesia General Findings According to the calipered kinematic alignment principles, the knee was balanced by the following verification checks incorporating 6 caliper measurements, using an insert goniometer to select the insert thickness, and adjusting the tibial resection following the kinematic alignment algorithm (see figure 160.10 published in [employer] chapter on kinematic alignment total knee arthroplasty.) The steps verified the femoral and tibial components were kinematically aligned coincident to the patient's pre arthritic joint lines, which closely restored the [place] tibial compartment forces and ligament laxities without ligament release. The [employer] knee, designed specifically for kinematic alignment, fit optimally. The record of verification checks were documented and scanned into the chart. Distal Femoral Resection: Distal Medial 6 mm(cartilage worn), Distal Lateral 8 mm Target thickness of 8mm Unworn, 6mm Worn (No Cartilage). Posterior Femoral Resection: Posterior Medial 5 mm(cartilage worn), Posterior Lateral 7 mm. Target thickness of 7mm Unworn, 5mm Worn (No Cartilage). Description of Procedure General anesthesia was administered. A well-padded tourniquet was placed high on the thigh. The limb was prepped and draped in the usual sterile fashion. The limb was exsanguinated and the tourniquet inflated to 300 mmHg. A longitudinal incision was created over the midline of the knee. Sharp dissection was taken through subcutaneous tissues. Electrocautery was used for hemostasis. A trivector approach to the knee joint was performed. The ACL, anterior horns of the menisci, and fat pad were excised, and a subperiosteal dissection was carried along the posterior medial border of the tibia. The thickness of the [place] patella was measured with a caliper. The patella was resected using the oscillating saw. The best fitting anatomic patella button was selected. The fixation holes were drilled. When the patella and patella buttons combined thickness was thicker than the [place] patella, the patella was recut. Starting midway between the top of the notch in the anterior femoral cortex, I drilled a 9 mm diameter hole parallel to the anterior cortex to minimize flexion of the femoral component and promote patella tracking. I verified the existence of a 5-10 mm bone bridge between the posterior aspect of the hole and the anterior limit of the intercondylar notch. An intraosseous positioning johny was inserted 10 cm into the femur perpendicular to the distal joint line and parallel to the anterior cortex. I used a distal femoral referencing guide that compensated 2 mm when the cartilage was worn on the distal medial femoral condyle, and 2 mm when the cartilage was worn on the distal lateral femoral condyle. The basis for setting the distal and posterior femoral resection guide is knowing that the varus and valgus grade II to IV Kellegren-Cyrus osteoarthritic knees have negligible bone wear at 0? and 90? and that the mean full-thickness cartilage wear approximates 2 mm. I measured the thickness of distal femoral resections with a caliper to +/- 0.5 mm. The thickness of each resection was adjusted to match the thickness of the respective condyle of the femoral component within 0.5 mm of target after compensating for cartilage wear and kerf. When the distal resection was 1-2 mm too thin, a recut guide was used to adjust the cut. When the distal resection was too thick, a 1 or 2 mm thick washer was fixed to the back of the 4-in-1 chamfer block to ben a corrective gap between the femoral component and distal femur. I set posterior femoral referencing guide at 0? orientation to position the pin holes for the 4 in 1 chamfer block. The andrea wing measured the width of the distal femoral resection and selected the size of the 4 in 1 chamfer block and femoral component. The AP sizer confirmed the size. I measured the thickness of the posterior femoral resections with a caliper before making the anterior and chamfer cuts. I adjusted the thicknesses of each resection to match the thickness of the respective condyle of the femoral component within +/-0.5 mm after compensating for cartilage wear and curve. When a posterior resection femoral resection was 1-2 mm too thick or thin a corrective correction was made by shifting or rotating the 4 in 1 chamfer block as needed. The chamfer block was secured in the correct position with compression screws. The anterior and chamfer femoral resections were made. These caliper measurements and corrections verified that the femoral component was set coincident with the patient's pre-arthritic distal and posterior femoral joint lines. I removed all the medial and lateral femoral and tibial osteophytes to restore the pre arthritic length of the medial and lateral collateral ligaments. I ronn AP lines along the major axis of the lateral tibial plateau in between the tibial spines which identified the flexion extension plane of the knee. A conventional extramedullary tibial resection guide was applied to the ankle. An andrea wing was placed medially in the saw slot. The varus valgus angle of the tibial resection guide was adjusted until the guide paralleled the proximal tibial articular surface after compensating for cartilage and bone wear. The slope of flexion extension angle of the tibial resection guide was adjusted until the andrea wing paralleled the slope of the medial tibia after compensating for wear. The AP axis of the tibial resection guide was adjusted parallel to the two lines. The proximal tibia was resected, partially releasing the insertion of the posterior cruciate ligament. The thickness of the medial and lateral lateral tibial condyle was measured at the base of the tibial spines. I visually verified the slope of the medial border of the resection was parallel to the patient's pre arthritic slope after compensating for cartilage and bone wear. I removed the remnants of the posterior horns of the menisci and posterior osteophytes and cauterized the inferior lateral genicular vessels. The Aquamantys bipolar device was also used to for additional hemostasis. When the knee had a preoperative flexion contracture of 20? or more I teased the capsule off the posterior femur with a curved 3 quarter-inch osteotome. I administered the posterior femoral periosteal injection by delivering 10 cc using a 20 gauge spinal needle at the most medial and 10 cc at the most lateral femoral spur surface which reduced the risk of injury to the posterior neurovascular structures. I followed 6 options in a decision tree to fine tune the varus valgus and posterior slope orientation of the tibial component to restore the patient's pre arthritic tibial joint line and limb alignment. First, I adjusted the varus-valgus orientation of the proximal tibia resection working in 1 degree to 2 degree increments until there was negligible medial and lateral lift off of the distal femoral and proximal tibial resection from the spacer block during a varus valgus laxity assessment in extension. I selected the largest anatomic shape trial tibial base plate that fit within the cortical boundary of the proximal tibial resection. The base plate was best fit parallel to the cortical boundary which set the Internal-external orientation of the anterior to posterior and medial to lateral positions. The best fit method set the AP axis of the tibial base plate and insert parallel to the flexion extension plane of the pre arthritic knee. I pinned the trial tibial base plate, prepared the cruciate slot, and fixed the base plate to the tibia with the cruciate stem. I inserted the trial femoral component. The knee was placed in full extension. Varus valgus laxity is of the knee with trial components were assessed. When asymmetric laxity was observed a 1-2 degree varus or valgus recut guide was used to fine tune the tibial resection until the laxity was 1 degree or less in full extension like the [place] knee. The following steps determined the optimal insert thickness within +/-1 mm. First I inserted an insert goniometer that matched the thickness of the spacer block. I reduced the patella and then with the knee in maximum extension, I verified the knee hyperextended a few degrees and had negligible varus valgus laxity, like the pre arthritic knee. Next, I measured the external tibial orientation which was the angle the insert goniometer intersected the sagittal line on the medial condyle of the femoral trial component. Then with the knee in 15-30 degrees flexion I verified a 3-4 mm gap in the lateral compartment and no gap in the medial compartment during a 2nd varus valgus laxity test. Next, I placed the knee in 90? of flexion and the foot resting on the operating table and measured the internal tibial orientation. I repeated the steps until I identified the insert thickness that provided the highest external tibia orientation in extension and the highest internal tibial orientation at 90? flexion without anterior lift-off of the insert from the tibial base plate. The insert with this thickness was implanted. I applied a posterior drawer test with the tibia distracted by gravity and verified no posterior subluxation of the tibia relative to the femur. The patella remained centered on the trochlea and tracked well throughout the entire arc of flexion and extension. I used pulse lavage to clean the bony surfaces of debris and dried bone. I cemented the tibial, femoral, and patellar components using 1 bag of methylmethacrylate with Gentamycin, then rechecked the stability at full extension, 15-30 degrees, and 90? flexion and verified hoahaoism of the entire arc of motion of the knee. The circulating nurse confirmed the sponge and needle counts were correct. I used pulse lavage to rinse the joint and wound. The extensor mechanism was closed with interrupted #1 Vicryl suture and #1 running Stratafix suture. The subcutaneous layer was closed with interrupted #1 Vicryl suture followed by 2-0 Stratafix and 3-0 Stratafix. Steri-Strips placed on the skin. Silver impregnated occlusive dressing applied to the wound. A light gauze wrap and Juan bandage were placed. The patient was transferred to the recovery room in stable condition. There were no complications. Implants Med[employer]a GMK spheriKA Femoral component SpheriKA size 4, tibial component size 3/4, vitamin-E flex insert, thickness 12mm, Anatomic patella implant size 3. Estimated Blood Loss 50 Drains No Pathology None sent Complications No immediate complications Condition Stable Disposition PACU [facility] Billing Surgery - Charge Forward: Surgery Billing
[2024-11-20] MEDS: ONDANSETRON INJ 4 MG/2 ML VIAL IV PUSH ×3 (14:48→21:25)
--- NOTE | 2024-11-20 15:36 | ADMGEN ---
This patient, Shaista Moreno, was admitted to [address] [place] [address] Room 331-02. Patient/family oriented to hospital policies and general routines including ID bracelet, bed and alarms, visiting hours, pain management, procedures, bathroom and other care routines, personal items, smoking policy, room service/diet, and visiting hours. Information on how to activate the Rapid Response Team has been discussed. Patient/Family are encouraged to report perceived risks to care and to ask questions if they do not understand what they are told or what they should do.
[2024-11-20] MEDS: SODIUM CHLORIDE 0.9% IV 1,000 ML 125 ML IV CONT (16:23)
[2024-11-20] MEDS: predniSONE 5 MG TABLET PO (17:23)
[2024-11-20] MEDS: ACETAMINOPHEN 325 MG TABLET 650 MG PO (17:23)
[2024-11-20] MEDS: FAMOTIDINE 20 MG TABLET PO (20:03)
[2024-11-20] MEDS: ASPIRIN 81 MG ENTERIC TABLET PO (20:03)
[2024-11-20] MEDS: MELOXICAM 7.5 MG TABLET PO (20:04)
[2024-11-20] MEDS: oxyCODONE/ACETAMINOPHEN (*CRX) 5-325 MG TABLET 1 TABLET PO (21:25)
[2024-11-21 00:40] VITALS: BP 129/72; PULSE 73; RESP 18; TEMP 36.2; O2SAT 99
[2024-11-21] MEDS: ACETAMINOPHEN 325 MG TABLET 650 MG PO ×3 (00:49→11:58)
[2024-11-21] MEDS: ceFAZolin 2 GM/D5W 50 ML 2 GM/50 ML BAG IVPB ×2 (00:49→08:11)
[2024-11-21 04:25] VITALS: BP 138/72; PULSE 75; RESP 18; TEMP 36.3; O2SAT 99
[2024-11-21 07:27] LABS: Basophils Percent Auto 0.1 % (0.2-1.2); Eosinophils Percent Auto 0.1 % (0-4.4); Hematocrit 33.4 % (37.0-47.0); Hemoglobin 10.8 g/dL (12.0-15.0); Immature Granulocyte Absolute 0.04 K/mm3 (0.00-0.031); Immature Granulocyte Percent A 0.4 % (0-0.5); Lymphocytes Absolute Auto 1.44 K/mm3 (0.9-3.2); Lymphocytes Percent Auto 14.9 % (18.3-44.2); Mean Corpuscular HGB Conc 32.3 g/dl (32-36); Mean Corpuscular Hemoglobin 30.1 pg (26-34); Mean Platelet Volume 9.7 fl (7.4-10.4); Monocytes Absolute Auto 0.7 K/mm3 (0.1-0.6); Monocytes Percent Auto 7.2 % (2.6-8.5); Neutrophils Absolute Auto 7.5 K/mm3 (1.3-6.7); Neutrophils Percent Auto 77.3 % (45.5-73.1); Platelet Count Result 173 k/mm3 (150-375); Red Blood Count 3.59 M/mm3 (4.2-5.4); Red Cell Distribution Width 13.7 % (11.5-14.5); White Blood Count 9.7 K/mm3 (4.5-10.0)
[2024-11-21 07:41] LABS: Anion Gap 6 mmol/L (4-12); Blood Urea Nitrogen 10 mg/dL (7-17); Calcium 8.6 mg/dL (8.4-10.2); Carbon Dioxide 28 mmol/L (22-30); Chloride 104 mmol/L (98-107); Estimated CRCL calculation 82 ml/min; Estimated Glomerular Filt Rate > 60; Glucose 100 mg/dL (65-110); Potassium 4.5 mmol/L (3.4-5.0); Sodium 138 mmol/L (137-145)
[2024-11-21 08:00] VITALS: BP 150/69; PULSE 78; RESP 18; TEMP 36.3; O2SAT 98
[2024-11-21] MEDS: FAMOTIDINE 20 MG TABLET PO (08:16)
[2024-11-21] MEDS: ASPIRIN 81 MG ENTERIC TABLET PO (08:16)
[2024-11-21] MEDS: hydroCHLOROthiazide 12.5 MG CAPSULE PO (08:16)
[2024-11-21] MEDS: MELOXICAM 7.5 MG TABLET PO (08:17)
[2024-11-21] MEDS: oxyCODONE/ACETAMINOPHEN (*CRX) 10-325 MG TABLET 1 TAB PO (09:13)
[2024-11-21] MEDS: SENNA/DOCUSATE SODIUM TABLET 2 TAB PO (09:15)
[2024-11-21] MEDS: polyethylene glycoL 3350 17 GM POWD.PACK PO (09:15)
== END 2024-11-21 12:05 | disposition home or self-care (01) ==
LOC: ANHSURGERY 11:58 → ANH3MEDSUR 15:16
PROVIDERS: Physician Assistant Surgical; PCP Family Medicine; Visit Provider Orthopaedic Surgery
PROC: (CPT 27447; principal; 2024-11-20 10:00)
DX: M17.12 Unilateral primary osteoarthritis, left knee (principal); E66.9 Obesity, unspecified; Z68.36 Body mass index [BMI] 36.0-36.9, adult
CPT/HCPCS: 27447; 36415; 73560; 80048; 85025; 86850; 86900; 86901; 97110; 97116; 97161; 97165; 97535; C1776; A9270; C1713; J0171; J0690; J1100; J1171; J1885; J2270; J2405; J2704; J2795; J3010; J7030; J7120; J7512

== ENCOUNTER 2024-12-11 12:40 | Outpatient (CLI) | payer MEDICARE, SELFPAY ==
--- NOTE | ~2024-12-11 | XR_ITS ---
Left Knee Technique: AP, lateral, and sunrise views were obtained. Clinical History: Arthroplasty Findings: No fracture or dislocation is seen. Left knee arthroplasty in place, without hardware compl ication. Soft tissues are unremarkable. No joint effusion is seen. Impression: No acute abnormality. Left knee arthroplasty in place. Reviewed, dictated and finalized at location . 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 Left knee arthroplasty in place.
== END 2024-12-11 12:41 | disposition home or self-care (01) ==
PROVIDERS: PCP Family Medicine; Visit Provider Physician Assistant Surgical
DX: Z96.652 Presence of left artificial knee joint (principal)
CPT/HCPCS: 73562

== ENCOUNTER 2025-07-19 11:33 | Outpatient (CLI) | payer MEDICARE, SELFPAY ==
--- NOTE | ~2025-07-19 | MM_ITS ---
EXAMINATION: MM screening marc BI w katherine HISTORY: Screening TECHNIQUE: Craniocaudal and mediolateral oblique 3-D tomosynthesis images were obtained and synthetic 2-D images were generated. CAD analysis was submitted and interpreted. COMPARISON: Comparison to multiple prior studies sequentially, with oldest reviewed study dated 10/28/2021. BREAST PARENCHYMAL COMPOSITION: Not Dense: The breasts are almost entirely fatty. FINDINGS: There is no evidence of suspicious mass, calcification, or architectural distortion to suggest malignancy in either breast. There has been no suspicious interval change. IMPRESSION: 1. No mammographic evidence of malignancy. 2. Recommend routine screening mammography in one year. BI-RADS Category 1: Negative Reviewed, dictated and finalized at location B.
== END 2025-07-19 11:34 | disposition home or self-care (01) ==
LOC: ANHFOHIMG 11:35
PROVIDERS: PCP Family Medicine; Visit Provider Nurse Practitioner Family
DX: Z12.31 Encounter for screening mammogram for malignant neoplasm of breast (principal)
CPT/HCPCS: 77063; 77067